=== PATIENT | male | born 1975 | race Caucasian/White ===

== ENCOUNTER 2020-06-03 08:51 | Outpatient (CLI) | payer OTHER, SELFPAY ==
--- NOTE | 2020-06-17 13:24 | WPDHOMESLEEP ---
Sleep Study - Home Unattended Date of Study: 06/03/20 Ordering Provider: Indra Dhaliwal MD Interpreting Provider: Alice Banuelos MD Home Sleep Study Type: Apnea Link Air Height: 1.85 m Weight: 112.491 kg Body Mass Index: 32.7 Neck Circumference (inches): 18 [place]: 8 Reason for Sleep Study Loud snoring, non restorative sleep, difficulty losing weight Sleep History Gonzalez Urbano is a 44-year-old man who snores loudly, and he never feels completely rested. He wakes up throughout the night and has excessive daytime sleepiness. He frequently awakens at night with heartburn, belching or coughing. He occasionally awakens from sleep feeling short of breath. He frequently has trouble sleeping with a cold. He occasionally gasps for breath at night. He frequently has breathing problems at night reported to him by others. He rarely sweats excessively at night. He never has noticed his heart pounding or beating irregularly at night. He rarely falls asleep during the day never involuntarily and never while driving. 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 he does not feel paralyzed on waking or falling asleep. He does not have vivid dreamlike scenes upon awakening or falling asleep. He does not feel afraid to go to sleep. He rarely has nightmares. He does not remember his dreams. He rarely has racing thoughts. He rarely feels sad depressed or anxious. He occasionally has muscular tension and occasionally notices parts of his body jerking. He does not kick at night, does not have crawling and aching feelings in his legs at night and denies any kind of leg pain at night. He rarely has morning jaw pain. He occasionally grind his teeth during sleep. He occasionally has bothered by pain during the day. He is not awakened by pain at night. He occasionally wakes up feeling stiff in the morning with sore achy muscles and pain in the neck and spine. He has headaches, fatigue and takes antacids regularly due to constant heartburn at night. Normal bedtime is 10:00 p.m. falling asleep within 15-20 minutes, typically waking 3 times at night. While he wakes he will adjust his position and return to sleep within 2-5 minutes. He wakes in the morning at 6:30 a.m.. On the weekends he stays awake later, midnight and wakes in the morning between 830 and 9:00 a.m.. He estimates getting 6 hours of sleep at night. He does not usually take naps. A short nap may be refreshing. He occasionally has morning headaches. Habits: Quit tobacco 17 years ago. Caffeine 2 servings a day. Alcohol 8-10 beverages on 2 days out of the week. No recreational drugs. [facility] Past Medical History Medical History (Updated 06/17/20 @ 13:35 by Alice Banuelos MD) Arthritis GERD (gastroesophageal reflux disease) Hypertension Iron deficiency Low testosterone Surgical History Surgical History (Updated 06/17/20 @ 13:31 by Alice Banuelos MD) History of placement of ear tubes History of vasectomy Family History Family History Father Hypertension Grandparent Diabetes mellitus Other Cerebrovascular accident Family history of malignant neoplasm Social History Social History Smoking status: Former smoker Second hand tobacco smoke exposure: No Alcohol intake: current Medications Home Medications Medication Instructions Recorded Confirmed Type lisinopril 10 See Rx Instructions .ROUTE 01/19/20 04/18/20 Rx mg-hydrochlorothiazide 12.5 mg .COMPLEX #90 tablet tablet Medications: hand written list includes allopurinol 300 mg daily lisinopril/hydrochlorothiazide 10/12.5 daily iron 1 tablet daily vitamin D3 1 daily vitamin B12 daily Prevacid 1 daily Tri-test test 200 mg; 0.75 ml injected once a week Sleep Procedure This test wa
[2020-06-17 13:38] VITALS: BMI 32.7
== END 2020-06-03 08:52 | disposition home or self-care (01) ==
LOC: ANHCSM 08:51
PROVIDERS: PCP Family Medicine; Visit Provider Family Medicine
DX: G47.10 Hypersomnia, unspecified (principal); G47.33 Obstructive sleep apnea (adult) (pediatric)
CPT/HCPCS: 95806

== ENCOUNTER → 2020-07-19 00:52 | Outpatient (CLI) | payer OTHER, SELFPAY ==
[2020-07-19 19:49] LABS: SARS-CoV-2 RNA PCR Negative
== END ==
PROVIDERS: PCP Family Medicine; Visit Provider Internal Medicine Critical Care Medicine
DX: Z01.812 Encounter for preprocedural laboratory examination (principal); Z20.822 Contact with and (suspected) exposure to COVID-19
CPT/HCPCS: C9803; U0003; U0005

== ENCOUNTER 2020-07-22 09:48 | Outpatient (CLI) | payer OTHER, SELFPAY ==
--- NOTE | 2020-08-02 15:04 | WPDSLEEPSTUD ---
Sleep Study Date of Study: 07/22/20 Ordering Provider: Indra Dhaliwal MD Interpreting Physician: Alice Banuelos MD Sleep Study Type: CPAP Titration Height: 1.85 m Weight: 113.398 kg Body Mass Index: 33.0 Neck Circumference (inches): 17 [place]: 8 Reason for Sleep Study 06/03/2020 Home sleep test with an AHI of 67, 53% obstructive, 22% centrals, 26% mixed apneas, lowest saturation 65% Now returns for CPAP titration Sleep History Gonzalez Urbano is a 44-year-old man who snores loudly, and he never feels completely rested. He wakes up throughout the night and has excessive daytime sleepiness. He frequently awakens at night with heartburn, belching or coughing. He occasionally awakens from sleep feeling short of breath. He frequently has trouble sleeping with a cold. He occasionally gasps for breath at night. He frequently has breathing problems at night reported to him by others. He rarely sweats excessively at night. He never has noticed his heart pounding or beating irregularly at night. He rarely falls asleep during the day never involuntarily and never while driving. He He he rarely has daytime difficulties due to his excessive sleepiness, works as a business services intern of [employer] he does not feel paralyzed on waking or falling asleep. He does not have vivid dreamlike scenes upon awakening or falling asleep. He does not feel afraid to go to sleep. He rarely has nightmares. He does not remember his dreams. He rarely has racing thoughts. He rarely feels sad depressed or anxious. He occasionally has muscular tension and occasionally notices parts of his body jerking. He does not kick at night, does not have crawling and aching feelings in his legs at night and denies any kind of leg pain at night. He rarely has morning jaw pain. He occasionally grind his teeth during sleep. He occasionally has bothered by pain during the day. He is not awakened by pain at night. He occasionally wakes up feeling stiff in the morning with sore achy muscles and pain in the neck and spine. He has headaches, fatigue and takes antacids regularly due to constant heartburn at night. Normal bedtime is 10:00 p.m. falling asleep within 15-20 minutes, typically waking 3 times at night. While he wakes he will adjust his position and return to sleep within 2-5 minutes. He wakes in the morning at 6:30 a.m.. On the weekends he stays awake later, midnight and wakes in the morning between 830 and 9:00 a.m.. He estimates getting 6 hours of sleep at night. He does not usually take naps. A short nap may be refreshing. He occasionally has morning headaches. Habits: Quit tobacco 17 years ago. Caffeine 2 servings a day. Alcohol 8-10 beverages on 2 days out of the week. No recreational drugs. [facility] Past Medical History Medical History (Updated 06/17/20 @ 13:35 by Alice Banuelos MD) Arthritis GERD (gastroesophageal reflux disease) Hypertension Iron deficiency Low testosterone Surgical History Surgical History (Updated 06/17/20 @ 13:31 by Alice Banuelos MD) History of placement of ear tubes History of vasectomy Family History Family History Father Hypertension Grandparent Diabetes mellitus Other Cerebrovascular accident Family history of malignant neoplasm Social History Social History Smoking status: Former smoker Second hand tobacco smoke exposure: No Alcohol intake: current Medications Home Medications Medication Instructions Recorded Confirmed Type lisinopril 10 See Rx Instructions .ROUTE 01/19/20 04/18/20 Rx mg-hydrochlorothiazide 12.5 mg .COMPLEX #90 tablet tablet Sleep Procedure This test [facility] performed [facility] the [facility] multiple channel system including EOG, EEG, submental EMG, EKG, nasal and oral airflow using thermistors and nasal pressure sensors, chest and abdominal belt
[2020-08-02 15:08] VITALS: BMI 33.0
== END 2020-07-22 09:49 | disposition home or self-care (01) ==
LOC: ANHCSM 09:49
PROVIDERS: PCP Family Medicine; Visit Provider Family Medicine
DX: G47.33 Obstructive sleep apnea (adult) (pediatric) (principal)
CPT/HCPCS: 95811

== ENCOUNTER → 2021-04-29 01:57 | Outpatient (CLI) | payer OTHER, SELFPAY ==
[2021-04-29 19:52] LABS: SARS-CoV-2 RNA PCR Positive
== END ==
PROVIDERS: PCP Family Medicine; Visit Provider Nurse Practitioner Family
DX: U07.1 COVID-19 (principal)
CPT/HCPCS: C9803; U0003; U0005

== ENCOUNTER 2023-06-21 02:42 | Day surgery (SDC) | payer OTHER, SELFPAY ==
[2023-06-14 12:35] VITALS: BMI 32.3
--- NOTE | 2023-06-18 09:52 | SUR.PREOP ---
Patient called regarding upcoming procedure. Reviewed preop instructions, appointment times, and procedure prep.
[2023-06-21 10:26] VITALS: BP 136/96; PULSE 92; RESP 20; TEMP 36.1; O2SAT 98
[2023-06-21] MEDS: LACTATED RINGERS 1,000 ML 150 ML IV CONT (10:38)
--- NOTE | 2023-06-21 10:41 | WPDANESEPPF ---
Anes - Initial Pre Proc Eval Procedure: Operation Date: 06/21/23 11:30 Proposed Procedures p Screening Colonoscopy - Julian Washington MD Date/Time: 06/21/23 10:41 Surgeon: Julian Washington MD Pre Op Diagnosis: neoplasm screening Patient Data Age: 47 Gender: M Height: 1.85 m Weight: 114.9 kg Last Vital Signs Temp 96.9 F L 06/21/23 10:26 Pulse 92 06/21/23 10:26 Resp 20 06/21/23 10:26 BP 136/96 H 06/21/23 10:26 Pulse Ox 98 06/21/23 10:26 O2 Del Method Room Air 06/21/23 10:26 Allergies Allergy/AdvReac Type Severity Reaction Status Date / Time No Known Allergies Allergy Unknown Verified 06/21/23 10:23 Home Medications Medication Instructions Recorded Confirmed Type cholecalciferol (vitamin D3) 125 125 mcg PO DAILY 12/01/21 06/14/23 History mcg (5,000 unit) capsule cyanocobalamin (vitamin B-12) 5,000 mcg PO DAILY 12/01/21 06/14/23 History 5,000 mcg capsule lisinopril 10 See Rx Instructions .Route 02/17/23 06/21/23 Rx mg-hydrochlorothiazide 12.5 mg .COMPLEX #90 tabs tablet allopurinol 300 mg tablet 300 mg PO DAILY 06/14/23 06/14/23 History lansoprazole 15 mg capsule,delayed 15 mg PO DAILY 06/14/23 06/21/23 History release (Prevacid 24Hr) Patient hx anesthesia problems: none Family hx anesthesia problems: none Results Review: All pre-operative results and documents have been reviewed as part of the pre-operative evaluation. [facility] Past Medical History Medical History Arthritis BMI 33.0-33.9,adult GERD (gastroesophageal reflux disease) Hypertension Iron deficiency Low testosterone Surgical History Surgical History History of placement of ear tubes History of vasectomy Family History Family History Father Hypertension Grandparent Diabetes mellitus Other Cerebrovascular accident Family history of malignant neoplasm Social History Social History Smoking status: Never smoker Second hand tobacco smoke exposure: No Alcohol intake: current Drinks per week: 10 Alcohol use details: BEERS Substance use: never Substance use type: does not use Lack of Transportation: No Lack of Food: Never True Current Housing: I Have Housing Concerned About Future Housing: No Difficulty Paying Gas/Electric Bills: No Difficulty Paying for Meds: No Currently Unemployed: No Education: Associate Degree Difficulty w/ Childcare or Family Care: No Living arrangements: with family Spiritual care concerns: No Anes - Eval Final PreProcedure Day of Procedure 06/21/23 10:41 Patient weight: obese Heart: regular rate and rhythm Lungs: clear to auscultation Airway: Mallampati scale class II Neurological: alert and oriented Last oral intake: >/= 8 hours ASA classification: III Emergent: no Anesthetic plan: proceed Anesthesia type and monitoring: general GIVS and standard monitoring Results Review: All pre-operative results and documents have been reviewed as part of the pre-operative evaluation. Informed Consent: The patient's anesthetic plan and its attendant risks and benefits were discussed with the patient/family/POA. Questions were solicited and answers provided to the satisfaction of the patient/family/POA.
--- NOTE | 2023-06-21 10:45 | PM.HPGS ---
History of Present Illness History of Present Illness Consent: Risks, benefits, and alternatives have been discussed and questions answered. Patient agrees to proceed with procedure. Chief complaint: neoplasm screening Narrative: Gonzalez Urbano is a 47 year old male here for first screening colonoscopy Review of Systems Constitutional: Constitutional: Denies headache(s) and Denies weakness Eyes: Eyes: Denies blurry vision ENT: Reports Normal hearing present, Denies headache(s) and Denies neck pain Cardiovascular: Cardiovascular: Denies chest pain and Denies dyspnea Respiratory: Respiratory: Denies dyspnea Gastrointestinal: Gastrointestinal: Reports no additional gastrointestinal complaints Genitourinary: Genitourinary: Denies dysuria Musculoskeletal: Musculoskeletal: Denies neck pain Integumentary/Breasts: Skin/Breast: Denies dry skin Neurologic: Reports Normal hearing present, Denies headache(s) and Denies weakness Psychiatric: Psychiatric: Denies anxiety Endocrine: Endocrine: Denies change in body appearance Hematologic/Lymphatic: Hematologic/Lymphatic: Denies easy bleeding Allergic/Immunologic: Allergic/Immunologic: Denies urticaria PMFSH Past Medical History Medical History Arthritis BMI 33.0-33.9,adult GERD (gastroesophageal reflux disease) Hypertension Iron deficiency Low testosterone Surgical History Surgical History History of placement of ear tubes History of vasectomy Family History Family History Father Hypertension Grandparent Diabetes mellitus Other Cerebrovascular accident Family history of malignant neoplasm Social History Social History Smoking status: Never smoker Second hand tobacco smoke exposure: No Alcohol intake: current Drinks per week: 10 Alcohol use details: BEERS Substance use: never Substance use type: does not use Lack of Transportation: No Lack of Food: Never True Current Housing: I Have Housing Concerned About Future Housing: No Difficulty Paying Gas/Electric Bills: No Difficulty Paying for Meds: No Currently Unemployed: No Education: Associate Degree Difficulty w/ Childcare or Family Care: No Living arrangements: with family Spiritual care concerns: No Meds Home Medications and Allergies Home Medications Medication Instructions Recorded Confirmed Type cholecalciferol (vitamin D3) 125 125 mcg PO DAILY 12/01/21 06/14/23 History mcg (5,000 unit) capsule cyanocobalamin (vitamin B-12) 5,000 mcg PO DAILY 12/01/21 06/14/23 History 5,000 mcg capsule lisinopril 10 See Rx Instructions .Route 02/17/23 06/21/23 Rx mg-hydrochlorothiazide 12.5 mg .COMPLEX #90 tabs tablet allopurinol 300 mg tablet 300 mg PO DAILY 06/14/23 06/14/23 History lansoprazole 15 mg capsule,delayed 15 mg PO DAILY 06/14/23 06/21/23 History release (Prevacid 24Hr) Allergies Allergy/AdvReac Type Severity Reaction Status Date / Time No Known Allergies Allergy Unknown Verified 06/21/23 10:23 Vital Signs Vital Signs - 24 hr 06/21/23 10:26 Temperature 96.9 F L Pulse Rate 92 Respiratory Rate 20 Blood Pressure 136/96 H Pulse Oximetry 98 Oxygen Delivery Room Air Exam Const: General: comfortable and no acute distress HENMT: Face/Nose/Sinus: Normal nares present Eyes: General: appearance normal, both eyes and all related structures Neck: Neck: no JVD Resp: Auscultation: clear to auscultation bilaterally Cardio: Rate: regular rate Rhythm: regular rhythm GI: Inspection: non-distended GI Palp: Yes Soft to palpation Skin: General skin exam: normal color Neuro: General: gait normal Speech: normal speech Extrem: General: normal to inspection Psych: Mental Status: mental status gross
[2023-06-21 11:03] VITALS: BP 115/90; PULSE 84; RESP 17; O2SAT 97
[2023-06-21 11:13] VITALS: BP 117/92; PULSE 71; RESP 14; O2SAT 97
[2023-06-21 11:23] VITALS: BP 124/91; PULSE 82; RESP 17; O2SAT 97
== END 2023-06-21 11:30 | disposition home or self-care (01) ==
PROVIDERS: PCP Family Medicine; Visit Provider Internal Medicine Gastroenterology
PROC: 0DJD8ZZ Inspection of Lower Intestinal Tract, Via Natural or Artificial Opening Endoscopic (ICD-10-PCS; CPT 45378; principal; 2023-06-21 11:30)
DX: Z12.31 Encounter for screening mammogram for malignant neoplasm of breast (principal); D12.3 Benign neoplasm of transverse colon; I10 Essential (primary) hypertension; K21.9 Gastro-esophageal reflux disease without esophagitis; E61.1 Iron deficiency; E66.9 Obesity, unspecified; Z68.33 Body mass index [BMI] 33.0-33.9, adult; Z98.890 Other specified postprocedural states; Z82.49 Family history of ischemic heart disease and other diseases of the circulatory system; Z80.9 Family history of malignant neoplasm, unspecified
CPT/HCPCS: 45380; 88305; J7120

== ENCOUNTER 2024-10-11 08:00 | Outpatient (CLI) | payer OTHER, SELFPAY ==
--- OUTSIDE RECORDS SUMMARY | 2024-10-11 08:04 | XMS_ITS | Clinical Summary ---
Author Organization [facility] Address [facility] [address] [place] [address] Care Team Providers Care Washtub Worker Helper Name Role Phone Indra Dhaliwal MD Primary Care Provider [phone] Allergies No known active allergies Medications allopurinol (ZYLOPRIM) 300 MG tablet Take 1 tablet (300 mg total) by mouth daily. 4 Active lansoprazole (PREVACID) 15 MG capsule Take 1 capsule (15 mg total) by mouth daily. Active Testosterone Enanthate Powder Inject 25 Units into the skin 2 (two) times a week. Wednesday and wednesday 4 Active amLODIPine (NORVASC) 5 MG tablet Take 1 tablet (5 mg total) by mouth daily. 30 tablet 5 Active nitroglycerin (NITROSTAT) 0.[address] 1 tablet (0.4 mg total) under the tongue every 5 (five) minutes as needed for Chest Pain. 90 tablet 5 Active lisinopril (PRINIVIL) 10 MG tablet Take 1 tablet (10 mg total) by mouth daily. 30 tablet 5 Active Social History Tobacco Use Types Packs/Day Years Used Date Smoking Tobacco: Never Smokeless Tobacco: Never Tobacco Cessation:Counseling Given: Not Answered Alcohol Use Standard Drinks/Week Comments Not Currently 0 (1 standard drink = 0.6 oz pur e alcohol) socially Sex and Gender Information Value Date Recorded Sex Assigned at Not on file Legal Sex Male 6:46 PM EMERGENCY ROOM NURSE Gender Identity Not on file Sexual Orientation Not on file Last Filed Vital Signs Vital Sign Reading Time Taken Comments Blood Pressure 169/102 04/19/2024 11:30 PM EMERGENCY ROOM NURSE Pulse 72 04/19/2024 11:30 PM EMERGENCY ROOM NURSE Temperature 36 C (96.8 F) 04/19/2024 11:30 PM EMERGENCY ROOM NURSE Respiratory Rate 12 04/19/2024 11:30 PM EMERGENCY ROOM NURSE Oxygen Saturation 94% 04/19/2024 11:30 PM EMERGENCY ROOM NURSE Inhaled Oxygen Concentration - - Weight 122.5 kg (270 lb) 04/19/2024 7:05 PM EMERGENCY ROOM NURSE Height 185.4 cm (6' 1) 04/19/2024 7:05 PM EMERGENCY ROOM NURSE Body Mass Index 35.62 04/19/2024 7:05 PM EMERGENCY ROOM NURSE Plan of Treatment Health Maintenance Due Date Last Done Comments Colorectal Cancer Screening Colonoscopy (10 Years) 1977 Annual Physical 1980 Hepatitis C 07/02/1995 DTaP, Tdap and Td Vaccines ( 1 - Tdap) 1996 Hepatitis B Vaccines (1 of 3 - 19+ 3-dose series) 1996 COVID-19 Vaccine (4 - 2023-2 5 season) 2023 05/19/2021, 10/07/2020, 09/16/2020 Meningococcal B Vaccine Aged Out No l onger eligible based on patient's age to complete this topic Meningococcal Vaccine Aged Out No chata lynnette eligible based on patient's age to complete this topic Pneumococcal Vaccine: Pediatrics (0 to 5 Years) and At-Risk Patients (6 to 49 Years) Aged Out No longer eligible b ased on patient's age to complete this topic RSV Immunizations Under 20 Months Aged Out No longer eligible b ased on patient's age to complete this topic Insurance [employer]ET[employer] Care Teams Washtub Worker Helper Relationship Specialty Start Date End Date Indra Dhaliwal MD [address] [facility] [id number] PCP - General FAMILY PRACTICE 04/19/24
--- OUTSIDE RECORDS SUMMARY | 2024-10-11 08:04 | XMS_ITS | Clinical Summary ---
Author Organization [facility] Address [address] [place] [address] Care Team Providers Care Quality Checker Name Role Phone Indra Dhaliwal MD Primary Care Provider [phone] Source Comments [facility],non-owned Affiliates and Associated Physician Practices is amultiple site organization consisting of ambulatory clinics and hospital sitesin [place], [place], [place] and [place]. This disclosure is being madepursuant to the Care Everywhere program and may not contain all information available regarding this patient. Last updated 17.[facility] Allergies No known active allergies Medications * Be aware that medications may not be up to date on this document. Alwaysverify current medications with the patient. lisinopril-hydr ochlorothiazide (PRINZIDE; ZESTORETIC) 20-12.5 MG tablet Take 1 Tab by mouth once daily Active lansoprazole (PREVACID) 15 MG capsule Take 15 mg by mouth daily before breakfast Active Probiotic Product (TRUBIOTICS PO) Take by mouth once daily Active Family History Medical History Relation Name Comments Diabetes Father Hypertension Father Relation Name Status Comments Father Alive Mother Alive Sister Alive Social History Tobacco Use Types Packs/Day Years Used Date Smoking Tobacco: Former Cigarettes Smokeless Tobacco: Never Alcohol Use Standard Drinks/Week Comments Yes 0 (1 standard drink = 0.6 oz pur e alcohol) Sex and Gender Information Value Date Recorded Sex Assigned at Not on file Legal Sex Male 4:00 PM CDT Gender Identity Not on file Sexual Orientation Not on file 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 Not on file Not on file N ot on file Last Filed Vital Signs Vital Sign Reading Time Taken Comments Blood Pressure 128/84 03/01/2019 9:59 AM [employer] Pulse 84 03/01/2019 9:59 AM [employer] POL[employer]ER Temperature 37.6 C (99.7 F) 03/01/2019 9:59 AM [employer]ISHER Respiratory Rate 16 03/01/2019 9:59 AM [employer]RAZZ[employer] POLISHER Oxygen Saturation 98% 03/01/2019 9:59 AM TERRAZZO POLISHER Inhaled Oxygen Concentration - - Weight 108.9 kg (240 lb) 03/01/2019 9:59 AM [employer]RAZZ[employer] POLISHER Height 185.4 cm (6' 1) 03/01/2019 9:59 AM TERRAZZO POLISHER Body Mass Index 31.66 03/01/2019 9:59 AM TERRAZZO POLISHER Plan of Treatment Health Maintenance Due Date Last Done Comments COLOGUARD (AGES 45-75) - COL ON CA SCREENING 1977 COLON MONITORING 1977 COLONOSCOPY - COLON CA SCREENING 1977 CT COLONOGRAPHY - COLON CA SCREENING 1977 Colorectal Cancer Screening 1977 FIT - COLON CA SCREENING 1977 FLEX SIG - COLON CA SCREENING 1977 LIPID TESTING 1977 HIV SCREENING 1992 HEPATITIS C SCREENING 06/27/1995 DTAP/TDAP/TD VACCINES (1 - Tdap) 1996 HEPATITIS B VACCINE (1 of 3 - 19+ 3-dose series) 1996 SCREENING FOR DIABETES 03/01/2019 COVID-19 VACCINE (1 - 2023-2 5 season) 2023 DEPRESSION SCREENING 04/12/2024 INFLUENZA VACCINE (Season Ended) 2024 ZOSTER VACCINE (1 of 2) 07/02/2027 HIB VACCINE Aged Out No longer eligi ble based on patient's age to complete this topic HPV VACCINE Aged Out No longer eligi ble based on patient's age to complete this topic MENINGOCOCCAL (Group B) VACC INE SHARED DECISION-MAKING Aged Out No longer eligibl e based on patient's age to complete this topic MENINGOCOCCAL GROUPS A/C/Y/W VACCINE Aged Out No longer eligible b ased on patient's age to complete this topic PNEUMOCOCCAL VACCINE Aged Out No long er eligible based on patient's age to complete this topic Insurance [employer]ET[employer] AETNA SELF PAY NO INSURANCE Member Subscriber Plan / Payer (Ef fective for All Dates) Name:Gonzalez Oliver Member ID:Not on file Relation to Subscriber:Not on file Name:GONZALEZ OLIVER Subscriber ID:Not on file Address[address] [address] [place], [place] [address] [address] Payer ID:Not on file Group ID:Not on file Type:Self Pay Address: [place], [place] AETNA SELF PAY NO INSURANCE Member Subscriber Plan / Payer (Ef fective for All Dates) Name:Gonzalez Oliver Member ID:Not on file Relation to Subscriber:Not on file Name:GONZALEZ OLIVER Subscriber ID:Not on file Address: [facility] [place] [address] Payer ID:Not on file Group ID:Not on file Type:Self Pay Address: [place], [place] AET[employer] SELF PAY NO INSURANCE Member Subscriber Plan / Payer (Ef fective for All Dates) Name:Gonzalez Oliver Member ID:Not on file Relation to Subscriber:Not on file Name:GONZALEZ OLIVER Subscriber ID:Not on file Address: [facility] [place] [address] Payer ID:Not on file Group ID:Not on file Type:Self Pay Address: [place], [place] Care Teams Quality Checker Relationship Specialty Start Date End Date Indra Dhaliwal MD [address] [place] [address] PCP - General Family Medicine 11/28/14
[2024-10-11 08:48] LABS: Alanine Aminotransferase 58 U/L (6-50); Cholesterol 131 mg/dL (0-200); Creatine Kinase 120 U/L (55-170); HDL Direct 32 mg/dL; Triglycerides 211 mg/dL (<150); Uric Acid 5.4 mg/dL (3.5-8.5)
== END 2024-10-11 08:01 | disposition home or self-care (01) ==
PROVIDERS: PCP Family Medicine; Visit Provider Nurse Practitioner Family
DX: E78.5 Hyperlipidemia, unspecified (principal); Z13.220 Encounter for screening for lipoid disorders; M1A.0790 Idiopathic chronic gout, unspecified ankle and foot, without tophus (tophi)
CPT/HCPCS: 36415; 80061; 82550; 84460; 84550